=== PATIENT | female | born 1935 | race Caucasian/White ===

== ENCOUNTER 2017-12-29 10:00 | Outpatient (CLI) | payer OTHER ==
[2015-08-17 21:44] VITALS: BMI 26.6
--- NOTE | 2017-12-30 08:59 | MAMMO ---
EXAM: Bilateral digital screening mammogram (2-D and 3-D) History: Screening Comparison: None available. Findings: MLO and CC views of bilateral breasts demonstrate scattered fibroglandular breast parenchy ma. CAD was reviewed by the radiologist. Tomosynthesis was performed. There are no dominant masses , no suspicious microcalcifications and no architectural distortions Impression: Negative mammogram. Recommend followup routine screening mammography in 1 year. BIRADS 1
== END 2017-12-29 10:01 | disposition home or self-care (01) ==
LOC: RAD 10:00
PROVIDERS: ATTEND Family Medicine
DX: Z12.31 Encounter for screening mammogram for malignant neoplasm of breast (principal)
CPT/HCPCS: 77067

== ENCOUNTER 2018-08-12 04:14 | Emergency (ER) | payer OTHER ==
[2018-08-12 04:29] VITALS: TEMP 97.3; BMI 23.1
[2018-08-12] MEDS ORDERED: MORPHINE 4 MG/ML SYRINGE IVP STA (04:30)
[2018-08-12] MEDS ORDERED: ZOFRAN 4 MG/2 ML IVP STA (04:30)
[2018-08-12] MEDS ORDERED: SODIUM CHLORIDE 1,000 ML IV STA (04:36)
--- NOTE | 2018-08-12 04:39 | ED.PDOC ---
General ED Provider: Dr. POLINA BEAL Chief Complaint: Abdominal Pain Stated Complaint: Abdominal pain nausea and cramping. Family member with the stomach flu. Time Seen by Physician: 04:30 Mode of Arrival: Ambulance Information Source: Patient, EMT Exam Limitations: No limitations Primary Care Provider: JOY CARBALLO Nursing and Triage Documentation Reviewed and Agree: Yes Does patient meet sepsis criteria?: No System Inflammatory Response Syndrome: Not Applicable Sepsis Protocol: For patient's 13 years and over: Temp is 96.8 and below OR 101 and greater Pulse >90 BPM Resp >20/minute Acutely Altered Mental Status Are patient's symptoms suggestive of a new infection, such as: -Pneumonia -Skin, Soft Tissue -Endocarditis -UTI -Bone, Joint Infection -Implantable Device -Acute Abdominal Infection -Wound Infection -Meningitis -Blood Stream Catheter Infection -Unknown GI Complaint Exam - Abdominal Pain Complaint/Exam Onset: Sudden Duration: 1 day Symptoms Are: Still present Timing: Constant Initial Severity: Moderate Current Severity: Severe Location of Pain: Diffuse Radiates To: Denies: Chest, Back, Flank, LLQ, RLQ, Inguinal Character: Reports: Dull, Aching, Throbbing Aggravating: Reports: Food Alleviating: Reports: None Associated Signs and Symptoms: Reports: Nausea, Vomiting (x1). Denies: Chest pain, Dizziness, Back pain, Constipation, Blood in stool, Dysuria, Urinary frequency, Decreased urine output, Decreased appetite, Vaginal bleeding, Vaginal discharge, Decreased activity AAA Risk Factors: Reports: None Cardiac Risk Factors: Reports: None Ectopic Risk Factors: Reports: None Ovarian Torsion Risk Factors: Reports: None Surgical Obstruction Risk Factors: Reports: None Related Surgical History: Reports: Cholecystectomy, Appendectomy Patient Rh Status: Unknown Abdominal Findings: Present: McBurney's Point tender. Absent: Rebound tenderness Differential Diagnoses: Bowel Obstruction, Pancreatitis, PUD, UTI Review of Systems - Review Of Systems Constitutional: Reports: No symptoms Eyes: Reports: No symptoms Ears, Nose, Mouth, Throat: Reports: No symptoms Respiratory: Reports: No symptoms Cardiac: Reports: No symptoms GI: Reports: Abdominal pain, Nausea, Vomiting (x 1 upon arrival ) : Reports: No symptoms Musculoskeletal: Reports: No symptoms Skin: Reports: No symptoms Neurological: Reports: Anxiety All Other Systems: Reviewed and Negative Past Medical History - Past Medical History Previously Healthy: No Endocrine: Reports: None Cardiovascular: Reports: Hypertension Respiratory: Reports: None Hematological: Reports: None Gastrointestinal: Reports: GERD, Crohn's Genitourinary: Reports: None Neuro/Psych: Reports: Anxiety, Depression Musculoskeletal: Reports: None Cancer: Reports: None Last Menstrual Period: hyst. - Surgical History General Surgical History: Reports: Hysterectomy, Appendectomy, Cholecystectomy ( open), Other (hemorrhods) - Family History Family History: Reports: None - Social History Smoking Status: Never smoker Hx Substance Use: No Alcohol Screening: None - Immunizations Tetanus Shot up to Date: Yes Physical Exam - Physical Exam Appearance: Ill-appearing Ill-appearing: Moderate Pain Distress: Severe Eyes: THAD, EOMI Neck: Supple Respiratory: Airway patent Cardiovascular: RRR, Pulses normal, No rub, No murmur GI/: Tender, Bowel sounds hyperactive Musculoskeletal: Normal strength, ROM intact, No edema, No calf tenderness Skin: Warm, Dry, Normal color Neurological: Sensation intact, Motor intact, Alert, Oriented Psychiatric: Anxious Interpretation - Radiology Interpretation Radiology Interpretation By: Radiologist Radiology Results: Positive (High grade distal small bowel obstruction.) Exam Interpreted: CT Scan Radiology Interpretation By: ED Physician Radiology Results: Positive (NG tube palcement in the gastric area.) Exam Interpreted: Other (KUB) Re-Evaluation - Re-Evaluation Time of Re-Evaluation: 05:54 Status: Improved Vital Signs Stable: Yes Pain Level: gone Appearance: NAD Lungs: Clear Neuro: Other (solmnolant but arousable.) CV: RRR Physician Notification - Case Discussed Physician Notified: Dr. Torres Time of Notification: 06:05 (Accepted to Room 394, Requests NG tube Placement. ) Critical Care Note - Critical Care Note Total Time (mins): 0 Course - Course Hematology/Chemistry: 08/12/18 04:30 08/12/18 04:30 Orders, Labs, Meds: Lab Review 08/12/18 08/12/18 08/12/18 04:30 04:30 04:45 WBC 11.01 H RBC 3.55 L Hgb 11.9 L Hct 35.5 L MCV 100.0 H MCH 33.5 H MCHC 33.5 RDW Coeff of Severiano 12.5 Plt Count 228 Immature Gran % (Auto) 0.4 Neut % (Auto) 91.2 Lymph % (Auto) 5.6 L Nobles % (Auto) 2.6 Eos % (Auto) 0.0 Baso % (Auto) 0.2 Immature Gran # (Auto) 0.0 Neut # (Auto) 10.0 H Lymph # (Auto) 0.6 Nobles # (Auto) 0.3 L Eos # (Auto) 0.0 Baso # (Auto) 0.0 Sodium 136.9 Potassium 3.61 Chloride 103.5 Carbon Dioxide 24.5 Anion Gap 12.51 BUN 19.1 H Creatinine 0.64 Estimated GFR (MDRD) 89.00 BUN/Creatinine Ratio 29.84 Glucose 166.6 H Calcium 9.74 Total Bilirubin 0.76 AST 31.5 ALT 21.6 Alkaline Phosphatase 67.7 Total Protein 7.37 Albumin 4.23 Globulin 3.14 Albumin/Globulin Ratio 1.34 Amylase 89.0 Lipase 54.2 Influ A Molecular Assay Negative by naat Influ B Molecular Assay Negative by naat Orders Category Date Time Status ED NASOGASTRIC TUBE INSERTION .ONCE EMERGENCY 08/12/18 06:07 Active IV [ED IV/MEDIPORT/POWERPORT] .ONCE EMERGENCY 08/12/18 06:02 Active AMYLASE Stat LAB 08/12/18 04:30 Completed CBC W/ AUTO DIFF Stat LAB 08/12/18 04:30 Completed COMPREHENSIVE METABOLIC PANEL Stat LAB 08/12/18 04:30 Completed FLU A/B MOLECULAR Stat LAB 08/12/18 04:45 Completed LIPASE Stat LAB 08/12/18 04:30 Completed MOLECULAR GROUP A STREP Stat LAB 08/12/18 04:45 Completed UA [URINALYSIS C & S IF INDICATED] Stat LAB 08/12/18 04:27 Uncollected 0.9 % Sodium Chloride [Saline Flush] MEDS 08/12/18 06:02 Ordered 1 syr IVF PRN PRN Hydromorphone HCl [Dilaudid 1 mg/ml Syringe] MEDS 08/12/18 04:48 Discontinued 0.5 mg IVP ONCE STA Lidocaine HCl [Uro-Jet] MEDS 08/12/18 06:07 Discontinued 10 ml MUCOUSMEMB ONCE STA Morphine Sulfate [Morphine 4 mg/ml Syringe] MEDS 08/12/18 04:30 Discontinued 4 mg IVP ONCE STA Ondansetron HCl/Pf [Zofran 4 mg/2 ml] MEDS 08/12/18 04:30 Discontinued 4 mg IVP ONCE STA Promethazine HCl [Phenergan 25 mg/ml Vial] MEDS 08/12/18 04:57 Discontinued 25 mg .ROUTE .STK-MED ONE Promethazine HCl [Phenergan 25 mg/ml Vial] 25 mg MEDS 08/12/18 04:50 Discontinued 0.9 % Sodium Chloride [Sodium Chloride] 50 ml IV ONCE Sodium Chloride 0.9% [Sodium Chloride] 1,000 ml MEDS 08/12/18 04:36 Active IV 125 mls/hr CT ABD/PEL WO RENAL STONE PROT Stat RADS 08/12/18 04:36 Completed KUB [ABDOMEN 1 VIEW] Stat RADS 08/12/18 06:22 Ordered Medications Generic Name Dose Route Start Last Admin Trade Name Freq PRN Reason Stop Dose Admin Sodium Chloride 1,000 mls @ 125 mls/hr 08/12/18 04:36 08/12/18 04:40 Sodium Chloride IV 08/12/18 12:35 125 mls/hr .Q8H STA Administration Sodium Chloride 1 syr 08/12/18 06:02 Saline Flush IVF PRN PRN To flush IV Discontinued Medications Generic Name Dose Route Start Last Admin Trade Name Freq PRN Reason Stop Dose Admin Hydromorphone HCl 0.5 mg 08/12/18 04:48 08/12/18 05:32 Dilaudid 1 Mg/Ml Syringe IVP 08/12/18 04:49 0.5 mg ONCE STA Administration Promethazine HCl 25 mg/ Sodium 51 mls @ 75 mls/hr 08/12/18 04:50 08/12/18 05: 33 Chloride IV 08/12/18 05:30 75 mls/hr ONCE STA Administration Lidocaine HCl 10 ml 08/12/18 06:07 08/12/18 06:35 Uro-Jet MUCOUSMEMB 08/12/18 06:08 10 ml ONCE STA Administration Morphine Sulfate 4 mg 08/12/18 04:30 08/12/18 04:39 Morphine 4 Mg/Ml Syringe IVP 08/12/18 04:31 4 mg ONCE STA Administration Ondansetron HCl 4 mg 08/12/18 04:30 08/12/18 04:40 Zofran 4 Mg/2 Ml IVP 08/12/18 04:31 4 mg ONCE STA Administration Vital Signs: Temp Pulse Resp BP Pulse Ox 08/12/18 05:47 70 18 120/61 94 L 08/12/18 04:15 97.3 F L 77 22 131/79 99 Departure - Departure Time of Disposition: 06:45 Disposition: TSF SHORT-TRM HOSP Discharge Problem: Small bowel obstruction Condition: Fair Pt referred to PMD for follow-up: Yes IPMP verified?: No Allergies/Adverse Reactions: Allergies Sulfa (Sulfonamide Antibiotics) Adverse Reaction (Verified 08/12/18 04:29) Rash Home Medications: Ambulatory Orders Potassium Chloride [Micro-K Cap] 10 meq PO DAILY 05/29/14 Acetaminophen [Tylenol] 650 mg PO Q4H PRN 08/17/15 Omeprazole [Prilosec] 20 mg PO QDAC 08/17/15 Simvastatin 20 mg PO BEDTIME 08/17/15 Solifenacin Succinate [Vesicare] 10 mg PO DAILY 08/17/15 Adalimumab [Humira] 40 mg SQ DIRECTED 08/12/18 Amlodipine Besylate [Norvasc] 10 mg PO DAILY 08/12/18 Ferrous Sulfate [Iron] 325 mg PO DAILY 08/12/18 Mesalamine [Lialda] 4 tab PO DAILY 08/12/18 Vitamin E 400 unit PO DAILY 08/12/18
[2018-08-12] MEDS ORDERED: DILAUDID 1 MG/ML SYRINGE IVP STA (04:48)
[2018-08-12] MEDS ORDERED: PHENERGAN 25 MG/ML VIAL 25 MG in SODIUM CHLORIDE 50 ML IV STA (04:50)
[2018-08-12] MEDS ORDERED: PHENERGAN 25 MG/ML VIAL ONE (04:57)
--- NOTE | 2018-08-12 05:43 | CT ---
EXAM: CT abdomen pelvis without intravenous contrast 08/12/2018. Sagittal and coronal reformatted i farrah obtained HISTORY: Abdominal pain COMPARISON: 08/17/2015 FINDINGS: The liver, adrenal glands, kidneys and spleen show no acute abnormality. Benign granuloma tous calcifications. There is abnormal fluid distension of small bowel. There is a swirled appearan ce within the pelvic mesentery as seen on approximately images 100 - 105. There is associated mesent maxwell edema and abrupt transition point. The terminal ileum is decompressed. This is consistent with high-grade distal small bowel obstruction. There is no evidence of appendicitis. IMPRESSION: Findings most compatible with high-grade distal small bowel obstruction as described abo ve. Critical FINDINGS: I personally discussed these findings with Dr. Hancock, emergency department, 10/2018, 5:35 a.m.
[2018-08-12 05:47] VITALS: BP 120/61
[2018-08-12] MEDS ORDERED: URO-JET MUCOUSMEMB STA (06:07)
--- NOTE | 2018-08-12 07:18 | DI ---
EXAM: KUB HISTORY: Nasogastric tube placement FINDINGS / IMPRESSION: Nasogastric tube ends over the general region of the gastric body. Slight e xcess fecal retention right colon. Bowel gas pattern within normal limits. Degenerative changes of the spine.
== END 2018-08-12 07:00 | disposition short-term general hospital (02) ==
LOC: ED 04:14
DX: K56.609 Unspecified intestinal obstruction, unspecified as to partial versus complete obstruction (principal); I10 Essential (primary) hypertension; Z87.19 Personal history of other diseases of the digestive system
CPT/HCPCS: 36415; 74176; 80053; 82150; 83690; 85025; 87502; 87651; 96361; 96365; 96375; 99285

== ENCOUNTER 2018-12-30 09:16 | Outpatient (CLI) ==
--- NOTE | 2018-12-31 09:02 | MAMMO ---
EXAM: Bilateral digital screening mammogram (2-D and 3-D) History: Screening Comparison: Bilateral mammogram 12/29/2017 Findings: MLO and CC views of bilateral breasts demonstrate scattered fibroglandular breast parenchy ma. CAD was reviewed by the radiologist. Tomosynthesis was performed. There are no dominant masses , no suspicious microcalcifications and no architectural distortions Impression: Stable negative mammogram. Recommend followup routine screening mammography in 1 year. BI-RADS 1, negative
== END 2018-12-30 09:17 | disposition home or self-care (01) ==
LOC: RAD 09:16
PROVIDERS: ATTEND Family Medicine
DX: Z12.31 Encounter for screening mammogram for malignant neoplasm of breast (principal)